=== PATIENT | female | born 1975 | race African-American/Black ===

== ENCOUNTER → 2017-02-21 | Day surgery (SDC) | payer OTHER ==
[2017-02-20 16:20] VITALS: BMI 37.1
[~2017-02-21] MED LIST: Propofol 200 MG/20 ML VIAL ONE
--- NOTE | 2017-02-21 14:57 | OP ---
DATE OF PROCEDURE: 02/21/2017 PREOPERATIVE DIAGNOSIS: Epigastric and right upper quadrant pain. PROCEDURE IN DETAIL: After informed consent was obtained, the patient was placed in the left latera l decubitus position. Anesthesia was administered per the Anesthesia Department. Forward-viewing e ndoscope was inserted into the esophagus under direct visualization with ease and passed to the seco nd portion of the duodenum with ease. Second portion of the duodenum and duodenal bulb were normal. The pylorus, antrum, body, fundus, and cardia were normal. Retroflexion in the stomach was normal . Esophagus was normal throughout. There was some mild erythema in the distal antrum and this was biopsied. ASSESSMENT: Essentially normal esophagogastroduodenoscopy. RECOMMENDATIONS: 1. Await Helicobacter pylori results. 2. HIDA scan with ejection fraction. 3. Proceed with colonoscopy. PROCEDURE: After informed consent was obtained, the patient was placed in the left lateral decubitu s position. Anesthesia was administered per the Anesthesia Department. Forward-viewing endoscope w as inserted into the rectum after perianal inspection and rectal exam were normal. It was passed to the cecum and the ileum. The cecum, ileocecal valve, and appendiceal orifice were normal. The pre p was excellent. The ascending, transverse, descending, sigmoid and rectum were normal except for o ne small sigmoid polyp that was removed with cold snare electrocautery. Retroflexion in the rectum showed small internal hemorrhoids. ASSESSMENT: 1. Small sigmoid colon polyp -- status post polypectomy. 2. Small internal hemorrhoids. 3. Otherwise normal ileal colonoscopy. RECOMMENDATION: Begin trial of Levsin.
== END ==
LOC: SDC 10:43
PROVIDERS: ATTEND Internal Medicine Gastroenterology
PROC: 0DB68ZX Excision of Stomach, Via Natural or Artificial Opening Endoscopic, Diagnostic (ICD-10-PCS; principal; 2017-02-21)
PROC: 0DBN8ZX Excision of Sigmoid Colon, Via Natural or Artificial Opening Endoscopic, Diagnostic (ICD-10-PCS; principal; 2017-02-21)
DX: K29.50 Unspecified chronic gastritis without bleeding (principal); K63.5 Polyp of colon; K64.8 Other hemorrhoids; Z88.8 Allergy status to other drugs, medicaments and biological substances; Z79.899 Other long term (current) drug therapy
CPT/HCPCS: 88305; 88312; J2704

== ENCOUNTER 2017-12-31 15:46 | Outpatient (CLI) | payer OTHER | END 2017-12-31 15:47 | disposition home or self-care (01) | LOC: BICMAMMO 15:46 | PROVIDERS: ATTEND Family Medicine | DX: Z12.31 Encounter for screening mammogram for malignant neoplasm of breast (principal); N63.11 Unspecified lump in the right breast, upper outer quadrant; Z80.3 Family history of malignant neoplasm of breast | CPT/HCPCS: 77063; 77067 ==

== ENCOUNTER 2018-01-06 16:03 | Outpatient (CLI) | payer OTHER | END 2018-01-06 16:04 | disposition home or self-care (01) | LOC: BICULT 16:03 | PROVIDERS: ATTEND Family Medicine | DX: N63.10 Unspecified lump in the right breast, unspecified quadrant (principal) ==

== ENCOUNTER 2018-11-20 10:08 | Outpatient (CLI) | payer OTHER ==
--- NOTE | 2018-11-20 11:39 | MMO ---
Bilateral MAMMO Bilat Diag [facility]. CLINICAL HISTORY: Patient is 43 years old and is seen for diagnostic exam. The patient has the following family history of breast cancer: maternal aunt. The patient has no personal history of cancer. VIEWS: The views performed were: bilateral craniocaudal with tomosynthesis; bilateral mediolateral oblique with tomosynthesis; and bilateral mediolateral with tomosynthesis. FILMS COMPARED: The present examination has been compared to prior imaging studies performed at [facility] on 12/31/2017 and 11/20/2018. MAMMOGRAM FINDINGS: There are scattered fibroglandular densities. Stable lobular mass in the right breast. Stable appearance on ultrasound. Left breast: There are no suspicious masses, calcifications or areas of architectural distortion. There are no suspicious masses, suspicious calcifications, or new areas of architectural distortion. IMPRESSION: THERE IS NO MAMMOGRAPHIC EVIDENCE OF MALIGNANCY. A ROUTINE FOLLOW-UP MAMMOGRAM IN 1 YEAR IS RECOMMENDED. THE RESULTS OF THIS EXAM WERE SENT TO THE PATIENT. ACR BI-RADS Category 2 - Benign finding MAMMOGRAPHY NOTE: 1. A negative mammogram report should not delay a biopsy if a dominant of clinically suspicious mass is present. 2. Approximately 10% to 15% of breast cancers are not detected by mammography. 3. Adenosis and dense breasts may obscure an underlying neoplasm. Reported by: PARKER CODY MD Electonically Signed: [id number]
--- NOTE | 2018-11-20 12:29 | ULT ---
RIGHT BREAST ULTRASOUND: Date: 11/20/18 HISTORY: Follow-up of a slightly hyperechoic focus in the right breast. COMPARISON: 01/06/18. TECHNIQUE: Targeted sonographic imaging of the right breast is performed at the 10 o'clock position. Static imag es are reviewed. FINDINGS: Redemonstration of a hyperechoic focus measuring 0.6 x 0.4 x 0.6 cm (previously measuring 0.7 x 0.4 x 0.6 cm). No significant change. No new masses, areas of architectural distortion, or shadowing. IMPRESSION: BI-RADS Category 2 - Benign findings. RECOMMENDATION: Annual mammogram. POS: [facility]
== END 2018-11-20 10:09 | disposition home or self-care (01) ==
LOC: BICMAMMO 10:08
PROVIDERS: ATTEND Family Medicine
DX: R92.8 Other abnormal and inconclusive findings on diagnostic imaging of breast (principal); Z80.3 Family history of malignant neoplasm of breast
CPT/HCPCS: 77066; G0279

== ENCOUNTER 2020-02-29 15:59 | Outpatient (CLI) | payer OTHER ==
--- NOTE | 2020-02-29 16:31 | MMO ---
Bilateral MAMMO Bilat Screen [facility]. CLINICAL HISTORY: Patient is 44 years old and is seen for screening. The patient has the following family history of breast cancer: maternal aunt. The patient has no personal history of cancer. VIEWS: The views performed were: bilateral craniocaudal with tomosynthesis and bilateral mediolateral oblique with tomosynthesis. FILMS COMPARED: The present examination has been compared to prior imaging studies performed at [facility] on 12/31/2017 and 11/20/2018. This study has been interpreted with the assistance of computer-aided detection. MAMMOGRAM FINDINGS: The breasts are almost entirely fat. There are no suspicious masses, suspicious calcifications, or new areas of architectural distortion. IMPRESSION: THERE IS NO MAMMOGRAPHIC EVIDENCE OF MALIGNANCY. A ROUTINE FOLLOW-UP MAMMOGRAM IN 1 YEAR IS RECOMMENDED. THE RESULTS OF THIS EXAM WERE SENT TO THE PATIENT. ACR BI-RADS Category 1 - Negative MAMMOGRAPHY NOTE: 1. A negative mammogram report should not delay a biopsy if a dominant of clinically suspicious mass is present. 2. Approximately 10% to 15% of breast cancers are not detected by mammography. 3. Adenosis and dense breasts may obscure an underlying neoplasm. Reported by: MELISSA SCHROEDER MD Electonically Signed: [id number]
== END 2020-02-29 16:00 | disposition home or self-care (01) ==
LOC: BICMAMMO 15:59
PROVIDERS: ATTEND Physician Assistant
DX: Z12.31 Encounter for screening mammogram for malignant neoplasm of breast (principal); Z80.3 Family history of malignant neoplasm of breast
CPT/HCPCS: 77063; 77067